=== PATIENT | male | born 1960 | race Caucasian/White ===

== ENCOUNTER 2018-02-28 19:00 | Inpatient (IN) | payer BC ==
[2018-02-28] MEDS ORDERED: Sodium Chloride 0.9% 1,000 ML IV STA ×2 (20:12→22:30)
[2018-02-28] MEDS ORDERED: Morphine 4 MG/ML VIAL ONE ×2 (20:19→21:20)
[2018-02-28 20:23] LABS: BASO % 0.4 % (0.0-2.0); HEMOGLOBIN 10.9 g/dL (12.0-18.0); LYMPH # 1.1 K/uL (1.0-4.3); LYMPH % 9.4 % (20.0-40.0); MEAN CELL VOLUME 59.3 fl (80.0-94.0); MEAN CORPUSCULAR HEMOGLOBIN 18.3 pg (27.0-31.0); MEAN CORPUSCULAR HGB CONC 30.9 g/dL (33.0-37.0); MEAN PLATELET VOLUME 9.2 fl (7.2-11.7); MONO # 0.6 K/uL (0.0-0.8); MONO % 4.8 % (0.0-10.0); NEUT # 9.9 K/uL (1.8-7.0); NEUT % 85.4 % (50.0-75.0); NRBC % 0.1 % (0.0-0.0); PLATELET COUNT 149 K/uL (130-400); RBC 5.98 Mil/uL (4.40-5.90); RED CELL DISTRIBUTION WIDTH 17.7 % (11.5-14.5); WHITE BLOOD COUNT 11.6 K/uL (4.8-10.8)
[2018-02-28 20:35] LABS: ALB/GLOB RATIO 1.3 (1.0-2.1); ALBUMIN 4.6 g/dL (3.5-5.0); ALT/SGPT 71 U/L (21-72); AST/SGOT 38 U/L (17-59); BLOOD UREA NITROGEN 19 mg/dl (9-20); CALCIUM 9.4 mg/dL (8.4-10.2); GFR NON-AFRICAN AMERICAN > 60
[2018-02-28] MEDS ORDERED: Morphine 4 MG/ML VIAL IVP STA (20:42)
[2018-02-28 20:57] LABS: URINE BACTERIA OCC (<OCC); URINE BILIRUBIN NEGATIVE (NEGATIVE); URINE BLOOD SMALL (NEGATIVE); URINE CLARITY CLEAR (Clear); URINE COLOR YELLOW (YELLOW); URINE GLUCOSE (UA) NEG (NEGATIVE); URINE LEUKOCYTE ESTERASE NEG Leu/uL (Negative); URINE PROTEIN NEGATIVE (NEGATIVE); URINE UROBILINOGEN 0.2-1.0 mg/dL (0.2-1.0)
[2018-02-28 20:59] LABS: SQUAMOUS EPITHIAL 2 /hpf (0-5)
[2018-02-28 21:44] LABS: VENOUS BLOOD GAS BASE EXCESS 1.5 mmol/L (0.0-2.0); VENOUS BLOOD GAS PCO2 46 mmHg (40-60); VENOUS BLOOD GAS PO2 36 mm/Hg (30-55); VENOUS BLOOD PH 7.38 (7.32-7.43)
[2018-02-28 22:21] LABS: LYMPHOCYTE 6 % (20-50); MONOCYTE 3 % (0-10); NEUTROPHIL 90 % (42-75); REACTIVE LYMPHOCYTES 1 % (0-0); TOTAL CELLS COUNTED 100
[2018-02-28 22:23] LABS: ANISOCYTOSIS SLIGHT; HYPOCHROMIC SLIGHT; PLATELET ESTIMATE NORMAL (NORMAL)
[2018-02-28 22:24] LABS: MICROCYTOSIS MARKED; OVALOCYTES SLIGHT; SCHISTOCYTES SLIGHT; TEARDROP CELLS SLIGHT
--- NOTE | 2018-02-28 22:38 | ED PDOC ---
HPI: General Adult Time Seen by Provider: 02/28/18 20:02 Chief Complaint (Nursing): Back Pain Chief Complaint (Provider): Back Pain History Per: Patient History/Exam Limitations: no limitations Onset/Duration Of Symptoms: Days (x1 day) Current Symptoms Are (Timing): Still Present Additional Complaint(s): Lio Osuna is a 57 year old male with a past medical history of renal stones, who presents here with worsening right flank pain and hematuria, onset x1 day. Patient states that the pain and hematuria had initially resolved but the pain was back today and was worse. He went to urgent care to be seen and was told to come here to rule out "kidney damage." Patient is on no medications at this time. Patient states that previous renal stones had passed on own. He denies any vomiting or fever but does have nausea. PMD: Boyd Tracey Past Medical History Reviewed: Historical Data, Nursing Documentation, Vital Signs Vital Signs: Last Vital Signs Temp 98.4 F 02/28/18 19:31 Pulse 66 02/28/18 19:31 Resp 16 02/28/18 19:31 BP 168/72 H 02/28/18 19:31 Pulse Ox 96 02/28/18 19:31 - Medical History PMH: Kidney Stones - Surgical History Surgical History: No Surg Hx - Family History Family History: States: Unknown Family Hx - Home Medications Home Medications: Ambulatory Orders Medication Instructions Recorded RX: Ciprofloxacin [Cipro] 500 mg PO BID #14 tab 03/01/18 Tamsulosin [Flomax] 0.4 mg PO DAILY #30 cap 03/01/18 Tramadol HCl [Ultram] 50 mg PO Q8 PRN #30 tablet 03/01/18 - Allergies Allergies/Adverse Reactions: Allergies Allergy/AdvReac Type Severity Reaction Status Date / Time No Known Allergies Allergy Verified 02/28/18 19:31 Review of Systems ROS Statement: Except As Marked, All Systems Reviewed And Found Negative Constitutional: Negative for: Fever Gastrointestinal: Positive for: Nausea. Negative for: Vomiting Genitourinary Male: Positive for: Hematuria. Negative for: Penile Discharge, Scrotal Pain Musculoskeletal: Positive for: Other (right flank pain) Physical Exam - Reviewed Nursing Documentation Reviewed: Yes Vital Signs Reviewed: Yes - Physical Exam Appears: Positive for: Non-toxic, No Acute Distress Head Exam: Positive for: ATRAUMATIC, NORMOCEPHALIC Skin: Positive for: Normal Color, Warm, Dry Eye Exam: Positive for: Normal appearance, EOMI, PERRL ENT: Positive for: Normal ENT Inspection Neck: Positive for: Normal, Painless ROM, Supple Cardiovascular/Chest: Negative for: Regular Rate, Rhythm, Murmur Respiratory: Positive for: Normal Breath Sounds. Negative for: Respiratory Distress Gastrointestinal/Abdominal: Positive for: Normal Exam, Soft. Negative for: Tenderness Back: Positive for: Other (right flank pain) Extremity: Positive for: Normal ROM. Negative for: Pedal Edema, Deformity Neurologic/Psych: Positive for: Alert, Oriented - Laboratory Results Result Diagrams: 03/01/18 06:30 03/01/18 06:30 Lab Results: pO2 36 mm/Hg (30-55) 02/28/18 21:35 VBG pH 7.38 (7.32-7.43) 02/28/18 21:35 VBG pCO2 46 mmHg (40-60) 02/28/18 21:35 VBG HCO3 25.3 mmol/L 02/28/18 21:35 VBG Total CO2 28.6 mmol/L (22-28) H 02/28/18 21:35 VBG O2 Sat (Calc) 68.3 % (40-65) H 02/28/18 21:35 VBG Base Excess 1.5 mmol/L (0.0-2.0) 02/28/18 21:35 VBG Potassium 4.1 mmol/L (3.6-5.2) 02/28/18 21:35 Sodium 134.0 mmol/L (132-148) 02/28/18 21:35 Chloride 101.0 mmol/L (98-107) 02/28/18 21:35 Glucose 134 mg/dL (75-110) H 02/28/18 21:35 Lactate 2.2 mmol/L (0.7-2.1) H 02/28/18 21:35 FiO2 21.0 % 02/28/18 21:35 Crit Value Called To sera Eller md 02/28/18 21:35 Crit Value Called By Dawson mendez 02/28/18 21:35 Crit Value Read Back Y 02/28/18 21:35 Blood Gas Notified Time 5292 02/28/18 21:35 Total Bilirubin 0.6 mg/dl (0.2-1.3) 02/28/18 20:15 AST 38 U/L (17-59) 02/28/18 20:15 ALT 71 U/L (21-72) 02/28/18 20:15 Alkaline Phosphatase 45 U/L (38-126) 02/28/18 20:15 Total Protein 8.3 G/DL (6.3-8.2) H 02/28/18 20:15 Albumin 4.6 g/dL (3.5-5.0) 02/28/18 20:15 Globulin 3.7 gm/dL (2.2-3.9) 02/28/18 20:15 Albumin/Globulin Ratio 1.3 (1.0-2.1) 02/28/18 20:15 Urine Color Yellow (YELLOW) 02/28/18 20:15 Urine Clarity Clear (Clear) 02/28/18 20:15 Urine pH 6.0 (5.0-8.0) 02/28/18 20:15 Ur Specific [place] 1.020 (1.003-1.030) 02/28/18 20:15 Urine Protein Negative mg/dL (NEGATIVE) 02/28/18 20:15 Urine Glucose (UA) Neg mg/dL (NEGATIVE) 02/28/18 20:15 Urine Ketones Negative mg/dL (NEGATIVE) 02/28/18 20:15 Urine Blood Small (NEGATIVE) 02/28/18 20:15 Urine Nitrate Negative (NEGATIVE) 02/28/18 20:15 Urine Bilirubin Negative (NEGATIVE) 02/28/18 20:15 Urine Urobilinogen 0.2-1.0 mg/dL (0.2-1.0) 02/28/18 20:15 Ur Leukocyte Esterase Neg [place]/uL (Negative) 02/28/18 20:15 Urine RBC (Auto) 16 /hpf (0-3) H 02/28/18 20:15 Urine Microscopic WBC < 1 /hpf (0-5) 02/28/18 20:15 Ur Squamous Epith Cells 2 /hpf (0-5) 02/28/18 20:15 Urine Bacteria Occ (<OCC) H 02/28/18 20:15 - ECG O2 Sat by Pulse Oximetry: 96 (RA) Pulse Ox Interpretation: Normal Medical Decision Making Medical Decision Making: Time: 2011 A/P: Work up for Stones, morphine and toradol for pain, IV fluids and reassess patient. --CT abd/pelvis without PO or IV contrast --VBG --CMP --CBC --Urinalysis --Toradol 30 mg IVP --Morphine 2 mg IVP x2 --Sodium chloride 1,000 ml 2232 * Patient with right obstructing stone with hydronephrosis, requiring morphine, toradol, and zofran for moderate comfort right now. * Discussed with Dr. Salgado for admission. * Discussed admission vs. outpatient follow up with patient, who feels comfortable staying. * Patient will be seen by Dr. Salgado tomorrow, no indication for antibiotics at this time. * Hospitalist contacted directly. Scribe Attestation: Documented by Helder Vuong, acting as a scribe for Sera Eller MD. Provider Scribe Attestation: All medical record entries made by the Scribe were at my direction and personally dictated by me. I have reviewed the chart and agree that the record accurately reflects my personal performance of the history, physical exam, medical decision making, and the department course for this patient. I have also personally directed, reviewed, and agree with the discharge instructions and disposition. Disposition - Clinical Impression Clinical Impression: Kidney stone - Disposition Disposition Time: 22:30 Condition: STABLE
--- NOTE | 2018-02-28 22:51 | CP.PCM.PN ---
Subjective - Date & Time of Evaluation Date of Evaluation: 02/28/18 Time of Evaluation: 22:45 - Subjective Subjective: Discussed w Dr Eller.Pt with 8by 5 mm stone at UVj r side and multiple bilat renal calculi(nonobstructing) pthhas hx passing familia in past. pt is afibrile. Dr eller prefers to admit for pain control. Suggest start flomax Kub in AM if no sig stone mvmt.stenting may be required. Pt should be on antibiotics and flomax and clear liquid diet. Damian Objective - Vital Signs/Intake and Output Vital Signs (last 24 hours): Temp Pulse Resp BP Pulse Ox 98.4 F 66 16 168/72 H 96 02/28/18 19:31 02/28/18 19:31 02/28/18 19:31 02/28/18 19:31 02/28/18 22:44 - Medications Medications: Current Medications Sodium Chloride (Sodium Chloride 0.9%) 1,000 mls @ 1,000 mls/hr IV .Q1H STA Stop: 02/28/18 23:29 Tamsulosin HCl (Flomax) 0.4 mg PO DAILY STA Stop: 02/28/18 22:30 - Labs Labs: 02/28/18 20:15 02/28/18 20:15
[2018-02-28] MEDS ORDERED: Ciprofloxacin 400mg/200ml D5W 400 MG/200 ML BAG IVPB ONE (23:18)
[2018-02-28] MEDS ORDERED: HYDROmorphone 1 mg/ml ISec IVP STA (23:19)
[2018-02-28] MEDS ORDERED: HYDROmorphone 0.5 mg/0.5 ml ISec IVP STA (23:25)
[2018-02-28] MEDS ORDERED: Sodium Chloride 0.9% 1,000 ML IV SCH (23:45)
[2018-02-28] MEDS ORDERED: HYDROmorphone 1 mg/ml ISec IVP PRN (23:51)
[2018-02-28] MEDS: Ciprofloxacin 400mg/200ml D5W 400 MG/200 ML BAG IVPB SCH (23:52)
--- NOTE | 2018-03-01 02:38 | CP.PCM.HP ---
History of Present Illness - History of Present Illness History of Present Illness: 57 yo M with pmhx of R sided AVM, repaired umbilical hernia, recurrent renal calculi presents with R sided flank pain. Pt reports that 4 days prior, he noticed some slight R sided flank dull pain. Pain was consistent until taking tylenol, which helped alleviate his pain. Next day, he noticed the pain represent with Hematuria (pink); symptom cleared by the evening. 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 He took advil, but didnt alleviate his symptoms. Of note: hx of renal calculi 15 and 10 years prior, both spontaneously passing without surgical/lithotripsy intervention. Denies hx of UTI. Pt reports intermittent palpitations for the previous 2 weeks. No associated precipitating events. No hx of thryroid abnormality. Denies CP. PMD: Neurology: Surg: umbilical hernia Famhx: Father with stroke, non hemorrhagic Soc: quit smoking 6 yrs ago; social alcohol, denies illicit drugs Rx: Advil NKDA Present on Admission - Present on Admission Any Indicators Present on Admission: No History of Uncontrolled Diabetes: No Urinary Catheter: No Review of Systems - EENT Eyes: absent: Change in Vision - Cardiovascular Cardiovascular: absent: Chest Pain, Chest Pain at Rest - Respiratory Respiratory: absent: Cough, Dyspnea - Gastrointestinal Gastrointestinal: Abdominal Pain - Genitourinary Genitourinary: Flank Pain, Hematuria - Neurological Neurological: As Per HPI Past Patient History - Past Social History Smoking Status: Former Smoker Alcohol: Occasional Drugs: Denies Home Situation {Lives}: With Family - NEUROLOGICAL Hx Neurological Disorder: Yes Other/Comment: AVM - RENAL Hx Kidney Stones: Yes - GASTROINTESTINAL Hx Gastrointestinal Disorders: Yes (UMBILICAL HERNIA, REPAIRED) - GENITOURINARY/GYNECOLOGICAL Hx Genitourinary Disorders: Yes Other/Comment: RENAL CALCULI; NEPHROLITHAISIS - PSYCHIATRIC Hx Substance Use: No - SURGICAL HISTORY Hx Herniorrhaphy: Yes Other/Comment: ulcer repair - ANESTHESIA Hx Anesthesia: Yes Meds Allergies/Adverse Reactions: Allergies Allergy/AdvReac Type Severity Reaction Status Date / Time No Known Allergies Allergy Verified 02/28/18 19:31 Physical Exam - Constitutional Appears: In Acute Distress - Eye Exam Eye Exam: EOMI - ENT Exam ENT Exam: Mucous Membranes Moist - Respiratory Exam Respiratory Exam: Clear to Auscultation Bilateral, NORMAL BREATHING PATTERN. absent: Wheezes - Cardiovascular Exam Cardiovascular Exam: REGULAR RHYTHM, +S1, +S2 - GI/Abdominal Exam GI & Abdominal Exam: Normal Bowel Sounds, Soft. absent: Tenderness - Back Exam Back exam: CVA tenderness (R). absent: CVA tenderness (L) - Neurological Exam Neurological exam: Alert, CN II-XII Intact, Oriented x3 - Psychiatric Exam Psychiatric exam: Normal Affect, Normal Mood Results - Vital Signs Recent Vital Signs: Last Vital Signs Temp 98.4 F 02/28/18 19:31 Pulse 66 02/28/18 19:31 Resp 16 02/28/18 19:31 BP 168/72 H 02/28/18 19:31 Pulse Ox 96 02/28/18 22:44 - Labs Result Diagrams: 02/28/18 20:15 02/28/18 20:15 Labs: Laboratory Results - last 24 hr 02/28/18 02/28/18 02/28/18 20:15 20:15 20:15 WBC 11.6 H RBC 5.98 H Hgb 10.9 L Hct 35.4 MCV 59.3 L MCH 18.3 L MCHC 30.9 L RDW 17.7 H Plt Count 149 MPV 9.2 Neut % (Auto) 85.4 H Lymph % (Auto) 9.4 L Bee % (Auto) 4.8 Eos % (Auto) 0.0 Baso % (Auto) 0.4 Neut # (Auto) 9.9 H Lymph # (Auto) 1.1 Bee # (Auto) 0.6 Eos # (Auto) 0.0 Baso # (Auto) 0.0 Neutrophils % (Manual) 90 H Lymphocytes % (Manual) 6 L Reactive Lymphs % 1 H Monocytes % (Manual) 3 Platelet Estimate Normal Hypochromasia (manual) Slight Anisocytosis (manual) Slight Microcytosis (manual) Marked Tear Drop Cells Slight Ovalocytes Slight Schistocytes Slight pO2 VBG pH VBG pCO2 VBG HCO3 VBG Total CO2 VBG O2 Sat (Calc) VBG Base Excess VBG Potassium Glucose Lactate FiO2 Crit Value Called To Crit Value Called By Crit Value Read Back Blood Gas Notified Time Sodium 136 Potassium 4.1 Chloride 95 L Carbon Dioxide 26 Anion Gap 19 BUN 19 Creatinine 0.9 Est GFR ( Amer) > 60 Est GFR (Non-Af Amer) > 60 Random Glucose 130 H Calcium 9.4 Total Bilirubin 0.6 AST 38 ALT 71 Alkaline Phosphatase 45 Total Protein 8.3 H Albumin 4.6 Globulin 3.7 Albumin/Globulin Ratio 1.3 Venous Blood Potassium Urine Color Yellow Urine Clarity Clear Urine pH 6.0 Ur Specific [place] 1.020 Urine Protein Negative Urine Glucose (UA) Neg Urine Ketones Negative Urine Blood Small Urine Nitrate Negative Urine Bilirubin Negative Urine Urobilinogen 0.2-1.0 Ur Leukocyte Esterase Neg Urine RBC (Auto) 16 H Urine Microscopic WBC < 1 Ur Squamous Epith Cells 2 Urine Bacteria Occ H 02/28/18 21:35 WBC RBC Hgb Hct MCV MCH MCHC RDW Plt Count MPV Neut % (Auto) Lymph % (Auto) Bee % (Auto) Eos % (Auto) Baso % (Auto) Neut # (Auto) Lymph # (Auto) Bee # (Auto) Eos # (Auto) Baso # (Auto) Neutrophils % (Manual) Lymphocytes % (Manual) Reactive Lymphs % Monocytes % (Manual) Platelet Estimate Hypochromasia (manual) Anisocytosis (manual) Microcytosis (manual) Tear Drop Cells Ovalocytes Schistocytes pO2 36 VBG pH 7.38 VBG pCO2 46 VBG HCO3 25.3 VBG Total CO2 28.6 H VBG O2 Sat (Calc) 68.3 H VBG Base Excess 1.5 VBG Potassium 4.1 Glucose 134 H Lactate 2.2 H FiO2 21.0 Crit Value Called To sera Eller md Crit Value Called By Dawson mendez Crit Value Read Back Y Blood Gas Notified Time 2144 Sodium 134.0 Potassium Chloride 101.0 Carbon Dioxide Anion Gap BUN Creatinine Est GFR ( Amer) Est GFR (Non-Af Amer) Random Glucose Calcium Total Bilirubin AST ALT Alkaline Phosphatase Total Protein Albumin Globulin Albumin/Globulin Ratio Venous Blood Potassium 4.1 Urine Color Urine Clarity Urine pH Ur Specific [place] Urine Protein Urine Glucose (UA) Urine Ketones Urine Blood Urine Nitrate Urine Bilirubin Urine Urobilinogen Ur Leukocyte Esterase Urine RBC (Auto) Urine Microscopic WBC Ur Squamous Epith Cells Urine Bacteria Assessment & Plan - Assessment and Plan (Free Text) Assessment: 57 yo M with pmhx of R sided AVM, repaired umbilical hernia, recurrent renal calculi presents with R sided flank pain admitted for renal calculi Plan: CT a/p: Fatty liver; 8 x 5 mm calculus in the proximal R ureter producing mild hydronephrosis. Bialteral renal stones. The prostate gland is mildly enlarged and containing calcifications. Please correlate with PSA levels Obstructing renal calculi Urology: Dr. Salgado; Flomax, Abx, clear liquid diet followed with NPO; May require kub AM, stenting IVabx: Cipro 400 mg IVPB Q12 Flomax 0.4 mg qDaily Strain urine Liquid diet and then NPO after midnight Pain management IVF Palpitations intermittent f/u TSH Prostate enlarged and calcifications on CT A/P f/u PSA DVT prophylaxis SCDs Case and plan dw Dr. Campos Crowell MD PGY2
[2018-03-01] MEDS ORDERED: Lactated Ringer's 1,000 ML IV SCH ×2 (06:30→16:30)
[2018-03-01 06:54] LABS: HEMOGLOBIN 10.2 g/dL (12.0-18.0); MEAN CELL VOLUME 58.7 fl (80.0-94.0); MEAN CORPUSCULAR HEMOGLOBIN 18.6 pg (27.0-31.0); MEAN CORPUSCULAR HGB CONC 31.6 g/dL (33.0-37.0); RBC 5.5 Mil/uL (4.40-5.90); RED CELL DISTRIBUTION WIDTH 17.9 % (11.5-14.5); WHITE BLOOD COUNT 9.3 K/uL (4.8-10.8)
[2018-03-01 07:11] LABS: ALB/GLOB RATIO 1.2 (1.0-2.1); ALBUMIN 4.1 g/dL (3.5-5.0); ALT/SGPT 58 U/L (21-72); AST/SGOT 36 U/L (17-59); BLOOD UREA NITROGEN 19 mg/dl (9-20); CALCIUM 8.9 mg/dL (8.4-10.2); GFR NON-AFRICAN AMERICAN > 60
--- NOTE | 2018-03-01 09:43 | CP.PCM.PN ---
Subjective - Date & Time of Evaluation Date of Evaluation: 03/01/18 Time of Evaluation: 09:41 - Subjective Subjective: Pt exami ,chart review and Review of ct consistant with Obstructing right UVJ calculi will procede with stent this PM Hos[place] Objective - Vital Signs/Intake and Output Vital Signs (last 24 hours): Temp Pulse Resp BP Pulse Ox 98.5 F 70 18 142/69 100 03/01/18 09:13 03/01/18 09:22 03/01/18 09:22 03/01/18 09:22 03/01/18 09:22 Intake and Output: 03/01/18 03/01/18 06:59 18:59 Intake Total 100 Output Total 120 Balance -20 - Medications Medications: Current Medications Acetaminophen (Tylenol 325mg Tab) 650 mg PO Q6 PRN PRN Reason: Pain, Mild (1-3) Hydromorphone HCl (Dilaudid) 1 mg IVP Q6 PRN PRN Reason: Pain, severe (8-10) Ciprofloxacin (Cipro 400mg/200ml Dsw) 400 mg in 200 mls @ 200 mls/hr IVPB Q12 JAMES; Protocol Last Admin: 02/28/18 23:52 Dose: 200 mls/hr Lactated Ringer's (Lactated Ringer's) 1,000 mls @ 150 mls/hr IV .Q6H40M JAMES Stop: 03/01/18 13:09 Ketorolac Tromethamine (Toradol) 30 mg IVP Q6 PRN PRN Reason: Pain, moderate (4-7) Last Admin: 03/01/18 08:34 Dose: 30 mg Ondansetron HCl (Zofran Inj) 4 mg IVP Q6 PRN PRN Reason: Nausea/Vomiting Tamsulosin HCl (Flomax) 0.4 mg PO DAILY [facility] Last Admin: 03/01/18 08:55 Dose: 0.4 mg - Labs Labs: 03/01/18 06:30 03/01/18 06:30
[2018-03-01] MEDS: Ciprofloxacin 400mg/200ml D5W 400 MG/200 ML BAG IVPB SCH (10:04)
--- NOTE | 2018-03-01 10:32 | CT ---
Date of service: 02/28/2018 PROCEDURE: CT Abdomen and Pelvis without intravenous contrast HISTORY: rule out stone COMPARISON: None. TECHNIQUE: Without contrast.. Contrast dose: None Radiation dose: Total exam DLP = 860 mGy-cm. This CT exam was performed using one or more of the following dose reduction techniques: Automated exposure control, adjustment of the mA and/or kV according to patient size, and/or use of iterative reconstruction technique. FINDINGS: LOWER THORAX: Lingular subsegmental discoid like atelectatic changes suggested. LIVER: . No gross lesion or ductal dilatation. GALLBLADDER AND BILE DUCTS: Unremarkable. PANCREAS: Unremarkable. No gross lesion or ductal dilatation. SPLEEN: Unremarkable. ADRENALS: Unremarkable. No mass. KIDNEYS AND URETERS: Multiple bilateral renal calculi are present there are 3 in the right upper pole the largest here is approximately 4 mm. There are clustered/clumped calculi midpole on the right-this cluster approximately 4 to 5 mm. And in the lower pole a 4 to 5 mm calculus is noted. In the left upper pole 3 mm calculus is noted. In the midpole there are 3 calculi present to are each approximately 3 mm the 3rd is approximately 1 mm. The lower pole approximately 1 mm calculus is noted. No left hydronephrosis. There is moderate right hydronephrosis and proximal right ureteral dilatation from a 8 to 9 mm obstructing proximal right ureteral calculus. No additional distal ureteral calculi on either side noted. Bilateral perirenal fat stranding right greater than left noted. No gross renal masses appreciated. VASCULATURE: . No aortic aneurysm. There is presence of aortic atherosclerotic calcification and mural plaque on cross sectional studies. BOWEL: Unremarkable. No obstruction. No gross mural thickening. APPENDIX: Unremarkable. Normal appendix. PERITONEUM: Unremarkable. No free fluid. No free air. LYMPH NODES: Unremarkable. No enlarged lymph nodes. BLADDER: Unremarkable. REPRODUCTIVE: Prostatic calcifications noted. The prostate is borderline prominent. And seminal vesicles are unremarkable. BONES: No acute fracture. Thoracic level spondylosis noted. OTHER FINDINGS: Bilateral pelvic phleboliths noted. IMPRESSION: 8 to 9 mm proximal right ureteral calculus causing right hydro ureteral nephrosis. Perirenal fat stranding most notable. No additional distal ureteral calculi noted. No bladder calculi. Prostatic calcifications present. Additional bilateral nonobstructing renal calculi present Other findings as above. Concordant results (preliminary interpretation) provided by [employer]. .
--- NOTE | 2018-03-01 12:58 | RAD ---
Date of service: 03/01/2018 PROCEDURE: CHEST RADIOGRAPH, 1 VIEW HISTORY: Preop clearance. COMPARISON: None available. FINDINGS: LUNGS: Clear. PLEURA: No pneumothorax or pleural fluid seen. CARDIOVASCULAR: No aortic atherosclerotic calcification present. Normal. OSSEOUS STRUCTURES: No significant abnormalities. VISUALIZED UPPER ABDOMEN: Normal. OTHER FINDINGS: None. IMPRESSION: No active disease.
[2018-03-01] MEDS ORDERED: Gentamicin 80mg/50ml NS 160 MG/100 ML BAG IVPB ONE (15:06)
[2018-03-01] MEDS ORDERED: Propofol 10 mg/ml Inj (20 ML) ONE (15:20)
[2018-03-01] MEDS ORDERED: Lactated Ringer's 1,000 ML IV ONE (15:50)
[2018-03-01] MEDS ORDERED: Midazolam 2 MG/2 ML VIAL ONE (15:52)
[2018-03-01] MEDS ORDERED: Lidocaine 2% Jelly (Uro-Jet) TOP ONE (16:05)
--- NOTE | 2018-03-01 16:18 | PCM.SURG1 ---
Surgeon's Initial Post Op Note - Surgeon's Notes Surgeon: JANET Gold Nib Grinder: HORACIO Type of Anesthesia: General LMA Anesthesia Administered By: STAFF Pre-Operative Diagnosis: RIGHT UVJ CALCULI/COLIC Operative Findings: SAME Post-Operative Diagnosis: SAME Operation Performed: CYSTO/STENT RIGHT Specimen/Specimens Removed: NA Estimated Blood Loss: EBL {In ML}: 0 Blood Products Given: N/A Drains Used: No Drains Post-Op Condition: Good Date of Surgery/Procedure: 03/01/18 Time of Surgery/Procedure: 16:18
[2018-03-01] MEDS ORDERED: HYDROmorphone 0.5 mg/0.5 ml ISec IVP PRN (16:22)
--- NOTE | 2018-03-01 16:36 | CP.PCM.DIS ---
Provider - Provider Date of Admission: 02/28/18 22:13 Attending physician: Angelica Gasca MD Primary care physician: None Consults: 02/28/18 22:30 Urology Consult Stat Comment: Consulting Provider: Charly Salgado Jr. Consulting Physician: Charly Salgado Jr. Reason for Consult: Right obstructing renal stone with hydronephrosis Time Spent in preparation of Discharge (in minutes): 20 Hospital Course - Lab Results Lab Results: Most Recent Lab Values WBC 9.3 K/uL (4.8-10.8) 03/01/18 06:30 RBC 5.50 Mil/uL (4.40-5.90) 03/01/18 06:30 Hgb 10.2 g/dL (12.0-18.0) L 03/01/18 06:30 Hct 32.3 % (35.0-51.0) L 03/01/18 06:30 MCV 58.7 fl (80.0-94.0) L 03/01/18 06:30 MCH 18.6 pg (27.0-31.0) L 03/01/18 06:30 MCHC 31.6 g/dL (33.0-37.0) L 03/01/18 06:30 RDW 17.9 % (11.5-14.5) H 03/01/18 06:30 Plt Count 141 K/uL (130-400) 03/01/18 06:30 MPV 9.2 fl (7.2-11.7) 02/28/18 20:15 Neut % (Auto) 85.4 % (50.0-75.0) H 02/28/18 20:15 Lymph % (Auto) 9.4 % (20.0-40.0) L 02/28/18 20:15 Chester % (Auto) 4.8 % (0.0-10.0) 02/28/18 20:15 Eos % (Auto) 0.0 % (0.0-4.0) 02/28/18 20:15 Baso % (Auto) 0.4 % (0.0-2.0) 02/28/18 20:15 Neut # (Auto) 9.9 K/uL (1.8-7.0) H 02/28/18 20:15 Lymph # (Auto) 1.1 K/uL (1.0-4.3) 02/28/18 20:15 Chester # (Auto) 0.6 K/uL (0.0-0.8) 02/28/18 20:15 Eos # (Auto) 0.0 K/uL (0.0-0.7) 02/28/18 20:15 Baso # (Auto) 0.0 K/uL (0.0-0.2) 02/28/18 20:15 Neutrophils % (Manual) 90 % (42-75) H 02/28/18 20:15 Lymphocytes % (Manual) 6 % (20-50) L 02/28/18 20:15 Reactive Lymphs % 1 % (0-0) H 02/28/18 20:15 Monocytes % (Manual) 3 % (0-10) 02/28/18 20:15 Platelet Estimate Normal (NORMAL) 02/28/18 20:15 Hypochromasia (manual) Slight 02/28/18 20:15 Anisocytosis (manual) Slight 02/28/18 20:15 Microcytosis (manual) Marked 02/28/18 20:15 Tear Drop Cells Slight 02/28/18 20:15 Ovalocytes Slight 02/28/18 20:15 Schistocytes Slight 02/28/18 20:15 pO2 36 mm/Hg (30-55) 02/28/18 21:35 VBG pH 7.38 (7.32-7.43) 02/28/18 21:35 VBG pCO2 46 mmHg (40-60) 02/28/18 21:35 VBG HCO3 25.3 mmol/L 02/28/18 21:35 VBG Total CO2 28.6 mmol/L (22-28) H 02/28/18 21:35 VBG O2 Sat (Calc) 68.3 % (40-65) H 02/28/18 21:35 VBG Base Excess 1.5 mmol/L (0.0-2.0) 02/28/18 21:35 VBG Potassium 4.1 mmol/L (3.6-5.2) 02/28/18 21:35 Sodium 134.0 mmol/L (132-148) 02/28/18 21:35 Chloride 101.0 mmol/L (98-107) 02/28/18 21:35 Glucose 134 mg/dL (75-110) H 02/28/18 21:35 Lactate 2.2 mmol/L (0.7-2.1) H 02/28/18 21:35 FiO2 21.0 % 02/28/18 21:35 Crit Value Called To sera Eller md 02/28/18 21:35 Crit Value Called By Dawson mendez 02/28/18 21:35 Crit Value Read Back Y 02/28/18 21:35 Blood Gas Notified Time 214302/28/18 21:35 Sodium 137 mmol/l (132-148) 03/01/18 06:30 Potassium 4.1 MMOL/L (3.6-5.0) 03/01/18 06:30 Chloride 104 mmol/L (98-107) 03/01/18 06:30 Carbon Dioxide 26 mmol/L (22-30) 03/01/18 06:30 Anion Gap 11 (10-20) 03/01/18 06:30 BUN 19 mg/dl (9-20) 03/01/18 06:30 Creatinine 1.0 mg/dl (0.8-1.5) 03/01/18 06:30 Est GFR ( Amer) > 60 03/01/18 06:30 Est GFR (Non-Af Amer) > 60 03/01/18 06:30 Random Glucose 111 mg/dL (75-110) H 03/01/18 06:30 Calcium 8.9 mg/dL (8.4-10.2) 03/01/18 06:30 Total Bilirubin 0.6 mg/dl (0.2-1.3) 03/01/18 06:30 AST 36 U/L (17-59) 03/01/18 06:30 ALT 58 U/L (21-72) 03/01/18 06:30 Alkaline Phosphatase 42 U/L (38-126) 03/01/18 06:30 Total Protein 7.5 G/DL (6.3-8.2) 03/01/18 06:30 Albumin 4.1 g/dL (3.5-5.0) 03/01/18 06:30 Globulin 3.4 gm/dL (2.2-3.9) 03/01/18 06:30 Albumin/Globulin Ratio 1.2 (1.0-2.1) 03/01/18 06:30 TSH 3rd Generation 1.50 mIU/ML (0.46-4.68) 03/01/18 06:30 Venous Blood Potassium 4.1 mmol/L (3.6-5.2) 02/28/18 21:35 Urine Color Yellow (YELLOW) 02/28/18 20:15 Urine Clarity Clear (Clear) 02/28/18 20:15 Urine pH 6.0 (5.0-8.0) 02/28/18 20:15 Ur Specific Becker 1.020 (1.003-1.030) 02/28/18 20:15 Urine Protein Negative mg/dL (NEGATIVE) 02/28/18 20:15 Urine Glucose (UA) Neg mg/dL (NEGATIVE) 02/28/18 20:15 Urine Ketones Negative mg/dL (NEGATIVE) 02/28/18 20:15 Urine Blood Small (NEGATIVE) 02/28/18 20:15 Urine Nitrate Negative (NEGATIVE) 02/28/18 20:15 Urine Bilirubin Negative (NEGATIVE) 02/28/18 20:15 Urine Urobilinogen 0.2-1.0 mg/dL (0.2-1.0) 02/28/18 20:15 Ur Leukocyte Esterase Neg Katy/uL (Negative) 02/28/18 20:15 Urine RBC (Auto) 16 /hpf (0-3) H 02/28/18 20:15 Urine Microscopic WBC < 1 /hpf (0-5) 02/28/18 20:15 Ur Squamous Epith Cells 2 /hpf (0-5) 02/28/18 20:15 Urine Bacteria Occ (<OCC) H 02/28/18 20:15 - Hospital Course Hospital Course: 57 y/o male with PMH umbilical hernia repair, recurrent renal colic presented with right sided flank pain. CT abdomen showed multiple bilateral renal calculi non obstructing and 1 obstructing calculi in the right ureteropelvic junction.(8 to 9 mm proximal right ureteral calculus causing right hydro ureteral nephrosis. Perirenal fat stranding most notable.) Patient was placed under observation , kept NPO, started on IVF , toradol IV for pain, Flomax and Cipro IV empirically Urology was consulted and patient taken to OR for placement of right ureter stent Patient cleared by urology for discharge Will d/c patient home on PO Flomax , Ultram PRN for pain and Cipro Po empirically since patient had perinephric stranding . Patient to follow up with with Dr. Salgado on 03/06 at his office . Plan is for lithothripsy as out patient 1. Renal colic with right Ureteropelvic obstructing calculi and hydronephrosis 2.Multiple non obstructing renal stones 3. Enlarged prostate with calcifications Discharge Exam - Head Exam Head Exam: ATRAUMATIC, NORMOCEPHALIC - Eye Exam Eye Exam: EOMI, Normal appearance, PERRL Pupil Exam: NORMAL ACCOMODATION - ENT Exam ENT Exam: Mucous Membranes Moist, Normal Exam - Neck Exam Neck exam: Full Rom, Normal Inspection - Respiratory Exam Respiratory Exam: Clear to PA & Lateral, NORMAL BREATHING PATTERN. absent: Rales, Rhonchi, Wheezes - Cardiovascular Exam Cardiovascular Exam: REGULAR RHYTHM, RRR, +S1, +S2. absent: JVD - GI/Abdominal Exam GI & Abdominal Exam: Normal Bowel Sounds, Soft. absent: Distended, Guarding, Rebound, Tenderness - Rectal Exam Rectal Exam: Deferred - Extremities Exam Extremities exam: normal capillary refill, normal inspection, pedal pulses present - Back Exam Back exam: NORMAL INSPECTION - Neurological Exam Neurological exam: Alert, CN II-XII Intact, Oriented x3, Reflexes Normal - Psychiatric Exam Psychiatric exam: Normal Affect, Normal Mood - Skin Skin Exam: Dry, Intact, Normal Color, Warm Discharge Plan - Discharge Medications Prescriptions: Ciprofloxacin [Cipro] 500 mg PO BID #14 tab Tamsulosin [Flomax] 0.4 mg PO DAILY #30 cap Tramadol HCl [Ultram] 50 mg PO Q8 PRN #30 tablet PRN Reason: Pain, Severe (8-10) - Follow Up Plan Condition: STABLE Disposition: HOME/ ROUTINE Patient education suggested?: Yes Instructions: Kidney Stones in Adults, How to Wash Your Hands Properly, Preventing Falls, Staying Safe in the Hospital Referrals: Charly Salgado Jr., MD [Staff Provider] -
--- NOTE | 2018-03-01 18:47 | RAD ---
Date of service: 03/01/2018 PROCEDURE: Intraoperative Fluoroscopy. HISTORY: CYSTOSCOPY FINDINGS: Fluoroscopic assistance was provided for cystoscopy. Please refer to the operative report from ELIZABETH Walls. Total fluoroscopic time (continuous mode) utilized during the procedure 1.5 seconds.
[2018-03-01 20:20] VITALS: BP 122/59; PULSE 83; RESP 20; TEMP 98.6
--- NOTE | 2018-03-01 20:39 | CARD ---
APPROVED REPORT Date of service: 03/01/2018 EKG Measurement Heart [id number] <Conclusion> Normal sinus rhythm Possible Left atrial enlargement Borderline ECG
--- NOTE | 2018-03-02 04:25 | OP ---
PROCEDURE DATE: 03/01/2018 PREOPERATIVE DIAGNOSIS: Right ureterovesical junction with hydronephrosis and renal colic. POSTOPERATIVE DIAGNOSIS: Right ureterovesical junction with hydronephrosis and renal colic. PROCEDURE: Cystoscopy, insertion of double J stent. FINDINGS: Ureterovesical junction calculi with obstruction. DESCRIPTION OF PROCEDURE: The patient was draped and prepped in the usual manner. Prior to draping and prepping, he was asked to sign a detailed informed consent after full explanation of all risks, complications, and alternatives of this procedure. He accepted those risks. After draping and prepping, he was placed in lithotomy position and cystoscoped with a 21 Olympus panendoscope. The pendulous membranes of urethra were normal. The prostatic urethra showed trilobar hypertrophy with moderately large median lobe. The patient's bladder was entered atraumatically. Both ureteral orifices effluxed clear urine. The right ureteral orifice was cannulized with a sensor tip guidewire, which passed up above the stone under fluoroscopic control into the renal pelvis. A double J stent was then passed over the wire and positioned properly with the distal end curled in the bladder and the proximal end in the right renal pelvis. The patient tolerated this procedure well. He knows that he needs to have lithotripsy in the future. He has been given an appointment in our office for Monday, 12 noon, and will be discharged on Percocet and Cipro. Charly aSlgado MD
[2018-03-02 12:52] VITALS: O2SAT 96
[2018-03-02 14:39] LABS: TOTAL PSA 0.9 ng/mL (< or = 4.0)
== END 2018-03-01 20:20 | disposition home or self-care (01) | DRG 661 ==
LOC: H.ER 19:00 → H.ERHOLD 22:13 → H.PEDS 03-01 09:24
PROVIDERS: ADMIT Internal Medicine; ATTEND Internal Medicine
PROC: 0T768DZ Dilation of Right Ureter with Intraluminal Device, Via Natural or Artificial Opening Endoscopic (ICD-10-PCS; principal; 2018-03-01 16:15)
DX: N13.2 Hydronephrosis with renal and ureteral calculous obstruction (principal); N40.0 Benign prostatic hyperplasia without lower urinary tract symptoms; Z87.442 Personal history of urinary calculi; Z87.891 Personal history of nicotine dependence